=== PATIENT | female | born 1990 | race Caucasian/White ===

== ENCOUNTER 2017-12-24 09:38 | Outpatient (CLI) | payer OTHER | END 2017-12-24 09:39 | disposition home or self-care (01) | LOC: BICULT 09:38 | PROVIDERS: ATTEND Obstetrics & Gynecology | DX: R60.0 Localized edema (principal); Z33.1 Pregnant state, incidental ==

== ENCOUNTER 2018-03-05 05:30 | Inpatient (IN) | payer OTHER ==
[2018-03-05] MEDS ORDERED: Ondansetron HCl/PF 4 MG/2 ML Vial IVP PRN ×2 (05:32→14:35)
[2018-03-05] MEDS ORDERED: Butorphanol Tartrate 1 MG/ML VIAL SLOW IVP PRN (05:32)
[2018-03-05] MEDS ORDERED: Ibuprofen 800 MG TAB PO PRN (05:32)
[2018-03-05] MEDS ORDERED: Promethazine HCl 25 MG/ML VIAL IM PRN ×2 (05:32→14:35)
[2018-03-05] MEDS ORDERED: Lidocaine 1% (PF) 30 ML VIAL SC PRN (05:32)
[2018-03-05] MEDS ORDERED: HYDROcodone/Acetaminophen 5/325 mg Tablet PO PRN ×4 (05:32→14:35)
[2018-03-05] MEDS ORDERED: NS / Oxytocin 40 units/1000ml 1,000 ML IV PRN (05:32)
[2018-03-05] MEDS ORDERED: NS w/ Oxytocin 10 units 500 ML IV SCH (05:45)
[2018-03-05] MEDS ORDERED: CEFAZOLIN/Water 2 GM/20 ML SYRINGE ONE (07:22)
[2018-03-05] MEDS: Lactated Ringer's 1,000 ML IV SCH ×2 (07:30→09:30)
[2018-03-05 07:57] LABS: Hemoglobin 11.3 g/dL (12.0-16.0); Mean Corpuscular HGB CONC 33.7 g/dL (32.0-36.0); Mean Corpuscular Hemoglobin 27.4 pg (27.0-31.0); Mean Corpuscular Volume 81.5 fl (81.0-99.0); Mean Platelet Volume 9.8 fL (7.4-10.4); Platelet Count 161 thou/uL (130-400); RBC Distribution Width 18.5 % (11.5-14.5); Red Blood Cell (RBC) Count 4.13 mill/uL (4.20-5.40); White Blood Cell (WBC) Count 7.6 thou/uL (4.8-10.8)
[2018-03-05 08:35] LABS: Syphilis Antibody Nonreactive (Nonreactive); Syphilis Antibody Index 0.03 S/CO (<1.00 Non-Reactive)
[2018-03-05] MEDS ORDERED: DISCONTINUE ALL PREVIOUS NARCOTICS FS SCH (09:15)
[2018-03-05] MEDS ORDERED: Bupivacaine 0.75% 13.4 ML, fentaNYL Citrate/PF 400 MCG in Sodium Chloride 0.9% 78.6 ML EPIDURAL SCH (09:15)
[2018-03-05 09:43] LABS: HBSAg Index 0.13 S/CO (0-0.99); Hep B Surf Ag Non-Reactive S/CO (NonReactive)
[2018-03-05] MEDS ORDERED: Dextrose 5%-Lactated Ringers 1,000 ML IV SCH (10:15)
[2018-03-05 10:17] VITALS: BMI 26.6
[2018-03-05] MEDS ORDERED: ePHEDrine/0.9% NaCl/PF SYRINGE 50 mg/10 ml SLOW IVP PRN (11:47)
[2018-03-05] MEDS ORDERED: Naloxone HCl 0.4 mg/ml Vial IVP PRN ×2 (11:47)
[2018-03-05] MEDS ORDERED: Lactated Ringer's 500 ML IV PRN (11:47)
[2018-03-05] MEDS ORDERED: Eucerin (Mineral Oil/Petrolatum,White) 30 gm Jar TOP PRN (11:47)
[2018-03-05] MEDS ORDERED: Communication Order-Pharmacy FS SCH (12:00)
[2018-03-05] MEDS ORDERED: Fentanyl 4mcg/Marcaine 0.1% Cassette 100 ML EPIDURAL SCH (12:00)
[2018-03-05] MEDS ORDERED: Benzocaine/Menthol 20-0.5% 60 ML CAN TOP PRN (14:35)
[2018-03-05] MEDS ORDERED: Bisacodyl 10 MG SUPP PR PRN (14:35)
[2018-03-05] MEDS ORDERED: Milk Of Magnesia 30 ML UDCUP PO PRN (14:35)
[2018-03-05] MEDS ORDERED: diphenhydrAMINE 25 MG CAP PO PRN (14:35)
[2018-03-05] MEDS ORDERED: Lanolin Ointment 7 GM TUBE TOP PRN (14:35)
[2018-03-05] MEDS ORDERED: Adacel (T-DAP) 0.5 ML VIAL IM ONE (14:35)
[2018-03-05] MEDS ORDERED: Preparation H Ointment 28 GM TUBE PR PRN (14:35)
[2018-03-05] MEDS ORDERED: NS / Oxytocin 40 units/1000ml 1,000 ML IV SCH (14:45)
[2018-03-05] MEDS: Ferrous Sulfate 325 MG TAB PO SCH (18:44)
[2018-03-05] MEDS: Ibuprofen 800 MG TAB PO SCH (21:48)
[2018-03-05] MEDS: Docusate Calcium (SURFAK) 240 MG CAP PO SCH (21:48)
[2018-03-06] MEDS: Ibuprofen 800 MG TAB PO SCH ×3 (05:02→21:04)
[2018-03-06] MEDS: Docusate Calcium (SURFAK) 240 MG CAP PO SCH ×2 (07:31→21:04)
[2018-03-06] MEDS: Prenatal Vitamin 1 TAB PO SCH (07:31)
[2018-03-06] MEDS: Ferrous Sulfate 325 MG TAB PO SCH ×2 (09:40→09:41)
[2018-03-06] MEDS ORDERED: Bupivacaine/Epinephrine 0.25% 30 ML VIAL ONE (15:40)
[2018-03-07] MEDS: Ibuprofen 800 MG TAB PO SCH (05:55)
[2018-03-07 08:08] VITALS: BP 126/84; TEMP 97.9
[2018-03-07] MEDS: Ferrous Sulfate 325 MG TAB PO SCH (10:11)
[2018-03-07] MEDS: Docusate Calcium (SURFAK) 240 MG CAP PO SCH (10:12)
[2018-03-07] MEDS: Prenatal Vitamin 1 TAB PO SCH (10:12)
--- NOTE | 2018-03-07 13:32 | OP ---
DATE OF SERVICE: 03/05/2018 ADMITTING DIAGNOSES: 1. A 28-year-old G2, P1-0-0-1, at 40 weeks with a scheduled induction labor for term favorable cervi x. 2. Group B Streptococcus negative. 3. Anemia of . POSTOPERATIVE DIAGNOSES: 1. A 28-year-old G2, P1-0-0-1, at 40 weeks with a scheduled induction labor for term favorable cervi x. 2. Group B Streptococcus negative. 3. Anemia of . 4. Liveborn male with Apgars of 9 and 9 at 1 and 5 minutes respectively with an , weight unava ilable at the time of dictation with Apgars of 9 and 9 at 1 and 5 minutes respectively. 5. Nuchal cord reduced at delivery. ANESTHESIA: Epidural. ESTIMATED BLOOD LOSS: 200 mL CLINICAL HISTORY: This patient is a 28-year-old G2, P1-0-0-1, who had an uneventful course . She was managed for anemia with iron supplements daily; otherwise, towards her last month of pregn korin, she was noted to contract regularly without any concerns. She continued to progress with cervi demar dilation and at approaching her due date, discussion of labor ensued and the patient had a favora ble cervix with a previous vaginal delivery and would be 40 weeks that the patient opted for an induc tion of labor. Her cervical exam at the time of induction was 4 cm, 70% effaced and -3 station. She was started on Pitocin and when she had regular contractions and head well applied to the cervix. T he amniotomy was performed for clear fluid. Patient continued to progress. She did request an epidu ral for maternal analgesia with adequate pain control. When she got to complete cervical dilation an d +2 station, the patient began to push. DETAILS OF PROCEDURE: With good maternal effort, the patient was able to push the vertex to th e position. She did have a few tracing abnormalities with a heart rate decelerations with p ushing as well as a brief moment of bradycardia. Her baseline at rest was in the 110s, this decelera tion was lasting for approximately 3 minutes when the neonatology team was called for possible vacuum delivery. At this point, the head was coming under the pubic bone and was the reason for the deceleration. With good maternal effort, the patient was able to suppress this and the tracing retur [place] back to a category 1 tracing. The team was dismissed and the vacuum was not performed. The head was then delivered in the SAL position. The nuchal cord was easily reduced at the pe rineum and the anterior shoulder followed by the posterior shoulder followed by the remainder of the infant's body was delivered. The infant cried spontaneously. The cord was doubly clamped and then c ut by the father of the baby and the was placed on the maternal abdomen with a good vigorous i nfant, the Apgars were noted at 9 and 9 at 1 and 5 minutes respectively. The placenta was then spont aneously delivered intact with a 3-vessel cord. Exploration of the vagina introitus and cervix noted no lacerations. The patient tolerated labor well and was able to recover with skin to skin in her l abor and delivery room with the . Again, the was a male with Apgars of 9 and 9 at 1 and 5 minutes respectively and weight was not available at the time of dictation. There were no other i ssues surrounding this delivery. All needle, sponge, lap, and instrument counts were correct x2 at t he end of this procedure.
== END 2018-03-07 12:51 | disposition home or self-care (01) | DRG 775 ==
LOC: L&D 07:03 → 3SW 17:00
PROVIDERS: ADMIT Obstetrics & Gynecology; ATTEND Obstetrics & Gynecology
PROC: 10E0XZZ Delivery of Products of Conception, External Approach (ICD-10-PCS; principal; 2018-03-05)
PROC: 3E033VJ Introduction of Other Hormone into Peripheral Vein, Percutaneous Approach (ICD-10-PCS; 2018-03-05)
PROC: 10907ZC Drainage of Amniotic Fluid, Therapeutic from Products of Conception, Via Natural or Artificial Opening (ICD-10-PCS; 2018-03-05)
DX: O99.02 Anemia complicating childbirth (principal); D64.9 Anemia, unspecified; O69.81X0 Labor and delivery complicated by cord around neck, without compression, not applicable or unspecified; O76 Abnormality in fetal heart rate and rhythm complicating labor and delivery; Z3A.40 40 weeks gestation of pregnancy; Z37.0 Single live birth
CPT/HCPCS: 51701; 51702; 85027; 86780; 86850; 86900; 86901; 87340; J2405; J3010; J7050

== ENCOUNTER 2018-03-10 04:47 | Emergency (ER) | payer OTHER ==
[2018-03-10 05:23] LABS: #Basophils 0.1 thou/uL (0.0-0.2); #Eosinphils 0.1 thou/uL (0.0-0.7); #Lymphocytes 1.7 thou/uL (1.20-3.40); #Monocytes 0.8 thou/uL (0.11-0.59); #Neutrophils 11.7 thou/uL (1.40-6.50); %Basophils 0.4 % (0.0-1.0); %Lymphocytes 11.9 % (21.0-51.0); %Monocytes 5.5 % (0.0-10.0); %Neutrophils 81.2 % (42.0-75.0); Hemoglobin 9.9 g/dL (12.0-16.0); Mean Corpuscular HGB CONC 33.1 g/dL (32.0-36.0); Mean Corpuscular Hemoglobin 27.4 pg (27.0-31.0); Mean Corpuscular Volume 82.8 fl (81.0-99.0); Mean Platelet Volume 8.6 fL (7.4-10.4); Platelet Count 245 thou/uL (130-400); Red Blood Cell (RBC) Count 3.62 mill/uL (4.20-5.40); White Blood Cell (WBC) Count 14.5 thou/uL (4.8-10.8)
== END 2018-03-10 06:00 | disposition home or self-care (01) ==
LOC: ERS 04:47
DX: O72.1 Other immediate postpartum hemorrhage (principal)
CPT/HCPCS: 36415; 85025; 86850; 86900; 86901; 96374; J2270